=== PATIENT | male | born 1965 | race Caucasian/White ===

== ENCOUNTER → 2022-12-19 | Outpatient (CLI) | payer BC, SELFPAY ==
--- NOTE | 2022-12-19 17:00 | RAD_ITS ---
STUDY: X-RAY - LUMBOSACRAL SPINE REASON FOR EXAM: Male, 57 years old. left SI pain TECHNIQUE: 6 view(s) of the lumbosacral spine were obtained including flexion and extension. COMPARISON: None FINDINGS: Normal lumbar lordosis. There is no substantial scoliosis. There is normal alignment of the vertebrae.. Normal vertebral bodies. The disc space heights appear fairly well maintained except for mild narrowing at L4-5. There is mild multilevel endplate spurring. . On the lateral projection, there is apparent narrowing of the spinal canal at L4-5 and L5-S1 exaggerated by facet arthropathy and shortened pedicles. Films obtained in flexion and extension demonstrate no evidence for gross instability Normal bilateral sacral ala, sacroiliac joints, and visualized sacrum. Normal visualized soft tissue structures. RAD/L/S Spine w Bend Min 6 Vw IMPRESSION: Mild degenerative changes. Probable spinal stenosis at L4-5 and L5-S1. CT or MRI is recommended for more definitive evidence if clinically warranted Electronically Signed: Remy Small MD at 18:11 EDT ,
== END | disposition home or self-care (01) ==
LOC: MTRAD 17:00
PROVIDERS: PCP Family Medicine; Referring Provider Family Medicine; Visit Provider Family Medicine
DX: M54.9 Dorsalgia, unspecified (principal)
CPT/HCPCS: 72114

== ENCOUNTER → 2023-01-14 | Outpatient (CLI) | payer BC, OTHER, SELFPAY ==
--- NOTE | 2023-01-14 08:30 | MRI_ITS ---
INDICATION: spinal stenosis EXAMINATION: MRI - MR Spine Lumbar W/O Contrast TECHNIQUE: Multiplanar and multisequence MR images of the lumbar spine. IV Contrast Dosage and Agent: None. COMPARISON: Lumbar spine radiographs dated 12/19/2022 FINDINGS: VERTEBRAE: Vertebral body heights are preserved. Normal vertebral bodies and posterior elements. VERTEBRAL ALIGNMENT: No spondylolisthesis. There is preservation of the normal lumbar lordosis. CORD: Normal position and signal intensity of the conus medullaris. L1/L2: Tiny broad-based posterior disc protrusion. No significant central canal stenosis or foraminal narrowing. L2/L3: Disc desiccation with loss of disc space height and a small broad-based posterior disc protrusion. In conjunction with mild facet arthropathy, this leads to mild left foraminal narrowing. No significant foraminal narrowing on the right, or central canal stenosis. L3/L4: Preserved height. Minimal broad-based posterior central disc protrusion. Mild facet arthropathy and ligamentum flavum hypertrophy. These changes lead to mild bilateral foraminal narrowing, slightly worse on the right. No significant central canal stenosis. L4/L5: Broad-based posterior disc protrusion with superimposed left paracentral/subarticular extrusion measuring 1.1 cm AP extending 1.4 cm inferiorly from the disc space, encroaching upon the descending left L5 nerve root. In conjunction with facet arthropathy and ligamentum flavum hypertrophy, these changes lead to moderate bilateral neural foraminal narrowing. Mild associated central canal stenosis. L5/S1: Moderate loss of disc space height, asymmetric to the left associated with a diffuse disc bulge, small. There is facet arthropathy and ligamentum flavum hypertrophy. These changes lead to mild bilateral foraminal narrowing without significant central canal stenosis. SOFT TISSUES: Unremarkable. MRI/Spine Lumbar (Routine) IMPRESSION: Multilevel lumbar spondylosis as described. Most notably, at L4-5, there is a moderate broad-based posterior disc protrusion with superimposed left paracentral and subarticular subligamentous extrusion extending inferiorly from the disc space, likely encroaching upon/compressing the left descending L5 nerve root. Electronically Signed: Michele Catalan MD at 16:24 EDT ,
== END | disposition home or self-care (01) ==
PROVIDERS: PCP Family Medicine; Referring Provider Family Medicine; Visit Provider Family Medicine
DX: M48.00 Spinal stenosis, site unspecified (principal)
CPT/HCPCS: 72148

== ENCOUNTER → 2023-03-24 | Outpatient (CLI) | payer BC, OTHER, SELFPAY ==
--- NOTE | 2023-03-24 06:50 | EKG12_ITS ---
Test Reason : PRE-OP Blood Pressure : / mmHG Vent. Rate : 064 BPM Atrial Rate : 064 BPM P-R Int : 160 ms QRS Dur : 106 ms QT Int : 400 ms P-R-T Axes : 077 050 067 degrees QTc Int : 412 ms Normal sinus rhythm with sinus arrhythmia Normal ECG Confirmed by RUBY RAMÍREZ, MERRY ([id number]), assignment desk editor JACKY ATKINSON ([id number]) on 03/25/2023 6:03:14 AM Referred By: Remy Leigh Confirmed By:MERRY BELTRAN MD
--- NOTE | 2023-03-24 07:00 | RAD_ITS ---
STUDY: X-RAY CHEST REASON FOR EXAM: Male, 58 years old. Preoperative evaluation. TECHNIQUE: Frontal and lateral views of the chest. COMPARISON: None. FINDINGS: Hyperinflation with mild flattening of the hemidiaphragms and increased AP diameter. There is no demonstrated pleural abnormality. Borderline cardiomegaly. Normal mediastinum and laura. Prominent central pulmonary arteries. Aortic tortuosity. Thoracic spondylosis with anterior wedge compression deformities of mid thoracic vertebral bodies and increased kyphosis. Normal visualized ribs, clavicles, and shoulders. No abnormality of the visualized soft tissue structures of the upper abdomen. RAD/Chest PA and Lateral IMPRESSION: Borderline cardiomegaly with findings which may represent COPD. No acute abnormality. Electronically Signed: Mook John MD at 9:15 EST ,
[2023-03-24 07:08] LABS: Absolute Lymphocyte Count 1.75 X10^3/uL (0.83-4.51); Absolute Neutrophil Count 2.1 X10^3/uL (2.0-7.7); Basophil# 0.05 X10^3/uL; Basophil% 1.1 % (0-1); Eosinophil# 0.08 X10^3/uL; Eosinophils% 1.8 % (0-5); Hemoglobin 13.3 g/dL (13.0-16.5); Lymphocyte # 1.75 X10^3/ul (0.83-4.51); Lymphocyte % 38.5 % (19-41); Mean Corpuscular Hgb 33.4 pg (27.0-32.0); Mean Corpuscular Volume 95.5 fL (80-94); Mean Platelet Vol. 9.4 fl (6.2-12.0); Monocyte# 0.54 X10^3/uL; Monocyte% 11.9 % (0-10); NRBC Flagged by Analyzer 0 % (0-5); Neutrophil # 2.11 X10^3/uL (2.7-7.7); Neutrophil % 46.5 % (47-70); Platelet Count 266 K/mm3 (150-450); RBC Distribution Width CV 12.4 % (11.6-14.6); RBC Distribution Width SD 43.6 fl (35.1-43.9); Red Blood Count 3.98 M/mm3 (4.6-6.2); White Blood Count 4.5 K/mm3 (4.4-11.0)
[2023-03-24 07:17] LABS: Prothrombin Time (Protime)PT. 12.7 SECONDS (11.7-14.9)
[2023-03-24 07:18] LABS: Partial Thromboplast Time 30.2 Seconds (24.1-36.2)
[2023-03-24 07:34] LABS: Anion Gap 3 (5-15); BUN 11 mg/dL (7-18); BUN/Creat Ratio 10.9 RATIO (10-20); Calcium,Total 9.5 mg/dL (8.5-10.1); Chloride 104 mmol/L (98-107); Creatinine, Serum 1.01 mg/dL (0.70-1.30); EST Glomerular Filtration Rate 80 mL/min (>60); Est Glom Filt Rate - Afr Amer 97 mL/min (>60); Glucose 95 mg/dL (74-106); Potassium 4.3 mmol/L (3.5-5.1); Sodium Level 134 mmol/L (136-145)
== END | disposition home or self-care (01) ==
LOC: PSN 06:27
PROVIDERS: PCP Family Medicine; Referring Provider Orthopaedic Surgery; Visit Provider Orthopaedic Surgery
DX: Z01.818 Encounter for other preprocedural examination (principal); Z01.812 Encounter for preprocedural laboratory examination; Z01.810 Encounter for preprocedural cardiovascular examination; Z01.811 Encounter for preprocedural respiratory examination
CPT/HCPCS: 36415; 71046; 80048; 85025; 85610; 85730; 93005